=== PATIENT | male | born 1985 | race Caucasian/White ===

== ENCOUNTER 2017-01-24 03:08 | Emergency (ER) | payer MEDICAID ==
[~2017-01-24] VITALS: Ht 180.3 cm; Wt 78.5 kg
[2017-01-24 04:41] VITALS: BP 115/72
== END 2017-01-24 04:42 | disposition home or self-care (01) ==
LOC: ED 03:46
DX: M25.571 Pain in right ankle and joints of right foot (principal); M25.572 Pain in left ankle and joints of left foot; B20 Human immunodeficiency virus [HIV] disease; W01.0XXA Fall on same level from slipping, tripping and stumbling without subsequent striking against object, initial encounter; Y93.89 Activity, other specified; Y99.8 Other external cause status; Y92.89 Other specified places as the place of occurrence of the external cause
CPT/HCPCS: 99284

== ENCOUNTER 2017-01-26 12:24 | Emergency (ER) | payer MEDICAID ==
[~2017-01-26] VITALS: Ht 180.3 cm; Wt 76.1 kg
[2017-01-26] MEDS ORDERED: LORazepam 2 MG/ML, 1ML IVPush ONE (13:00)
[2017-01-26] MEDS ORDERED: ONDANSETRON 2MG/ML, 2ML IVPush ONE (13:00)
[2017-01-26] MEDS ORDERED: SODIUM CHLORIDE FLUSH 10ML SYR IVF ONE (13:00)
[2017-01-26] MEDS ORDERED: SODIUM CHLORIDE 0.9% 1,000ML IVBOLUS ONE (13:00)
[2017-01-26 13:37] LABS: ASPARTATE AMINO TRANSFERASE 34 U/L (15-37); BLOOD UREA NITROGEN 10 mg/dL (7-18)
[2017-01-26] MEDS ORDERED: ONDANSETRON 2MG/ML, 2ML ONE (14:21)
[2017-01-26 15:36] VITALS: BP 113/62
== END 2017-01-26 15:38 | disposition home or self-care (01) ==
LOC: ED 15:00
DX: A08.0 Rotaviral enteritis (principal); Z88.6 Allergy status to analgesic agent; Z88.8 Allergy status to other drugs, medicaments and biological substances
CPT/HCPCS: 36415; 71010; 80053; 83605; 85025; 87040; 93005; 96361; 96374; 99285; J2405; J7030

== ENCOUNTER 2017-09-17 21:00 | Emergency (ER) | payer MEDICAID ==
[~2017-09-17] VITALS: Ht 180.3 cm; Wt 77.4 kg
[2017-09-17 21:56] LABS: BASOPHILS # (AUTO) 0.03 x10^3/uL (0-0.1); BASOPHILS % (AUTO) 1 % (0-1); EOSINOPHILS % (AUTO) 0 % (1-7); LYMPHOCYTES # (AUTO) 1.54 x10^3/uL (1-3.4); LYMPHOCYTES % (AUTO) 26 % (22-44); MD NO; MEAN CORPUSCULAR HEMOGLOBIN 31.4 pg (27.5-34.5); MEAN CORPUSCULAR HGB CONC 34.3 g/dL (33.2-36.2); MEAN CORPUSCULAR VOLUME 91.7 fL (81-97); MEAN PLATELET VOLUME 6.7 fL (7.4-10.4); MONOCYTES # (AUTO) 0.57 x10^3/uL (0.2-0.8); MONOCYTES % (AUTO) 10 % (2-9); NEUTROPHILS # (AUTO) 3.77 x10^3/uL (1.8-6.8); NEUTROPHILS % (AUTO) 64 % (42-75); PLATELET COUNT 300 x10^3/uL (130-400); RED BLOOD COUNT 4.53 x10^6/uL (4.38-5.82); RED CELL DISTRIBUTION WIDTH 13.5 % (9.4-14.8)
[2017-09-17 22:00] LABS: RAPID INFLUENZA A Negative (Negative)
[2017-09-17] MEDS ORDERED: SODIUM CHLORIDE 0.9% 1,000ML IVBOLUS ONE (22:00)
[2017-09-17] MEDS ORDERED: KETOROLAC 30 MG/1 ML IVPush ONE (22:00)
[2017-09-17 22:01] LABS: RAPID INFLUENZA B POSITIVE (Negative)
[2017-09-17 22:03] LABS: ALBUMIN 3.3 g/dL (3.4-5.0); ANION GAP 5 mmol/L (5-15); CHLORIDE 102 mmol/L (98-107); CREATININE 1.15 mg/dL (0.7-1.3)
[2017-09-17] MEDS ORDERED: KETOROLAC 30 MG/1 ML ONE (22:33)
[2017-09-17 22:53] VITALS: BP 120/72
== END 2017-09-17 23:04 | disposition home or self-care (01) ==
LOC: ED 22:57
DX: J09.X2 Influenza due to identified novel influenza A virus with other respiratory manifestations (principal); J45.909 Unspecified asthma, uncomplicated
CPT/HCPCS: 36415; 71010; 80048; 82040; 85025; 87400; 93005; 96374; 99285; J1885; J7030

== ENCOUNTER 2017-09-23 06:23 | Emergency (ER) | payer MEDICAID ==
[~2017-09-23] VITALS: Ht 180.3 cm; Wt 76.0 kg
[2017-09-23 06:27] VITALS: BP 133/91
[2017-09-23] MEDS ORDERED: ABAC1TAB14 PO (06:38)
== END 2017-09-23 07:19 | disposition home or self-care (01) ==
LOC: ED 07:13
DX: J20.8 Acute bronchitis due to other specified organisms (principal); B96.89 Other specified bacterial agents as the cause of diseases classified elsewhere; F17.200 Nicotine dependence, unspecified, uncomplicated; J45.909 Unspecified asthma, uncomplicated
CPT/HCPCS: 99283

== ENCOUNTER 2018-02-18 09:50 | Emergency (ER) | payer MEDICAID ==
[~2018-02-18] VITALS: Ht 180.3 cm; Wt 77.7 kg
[~2018-02-18 09:50] MED LIST: ABAC1TAB14 PO
[2018-02-18 09:52] VITALS: BP 133/91
[2018-02-18] MEDS ORDERED: HYDROcodone/APAP 5/325 TABLET PO ONE (10:30)
[2018-02-18] MEDS ORDERED: HYDROcodone/APAP 5/325 TABLET ONE (10:33)
== END 2018-02-18 10:42 | disposition home or self-care (01) ==
LOC: ED 10:36
DX: K02.9 Dental caries, unspecified (principal); F15.10 Other stimulant abuse, uncomplicated; F17.210 Nicotine dependence, cigarettes, uncomplicated
CPT/HCPCS: 99283

== ENCOUNTER 2018-12-09 13:47 | Emergency (ER) | payer MEDICAID ==
[~2018-12-09] VITALS: Ht 180.3 cm; Wt 78.9 kg
[2018-12-09 14:34] VITALS: BP 113/73
[2018-12-09] MEDS ORDERED: DEXAMETHASONE 4 MG/ML, 5ML ONE (14:49)
[2018-12-09] MEDS ORDERED: DEXAMETHASONE 4 MG/ML, 1ML PO ONE (15:00)
--- NOTE | 2018-12-09 15:33 | NUR ---
Patient/Caregiver given discharge instructions and they have confirmed that they understand the instructions. Patient ambulatory with steady gait.
== END 2018-12-09 15:34 | disposition home or self-care (01) ==
LOC: ED 15:15
DX: B34.9 Viral infection, unspecified (principal); R05 Cough; F17.200 Nicotine dependence, unspecified, uncomplicated
CPT/HCPCS: 71046; 99283; J1100

== ENCOUNTER 2019-10-02 13:51 | Emergency (ER) | payer MEDICAID ==
[~2019-10-02] VITALS: Ht 180.3 cm; Wt 80.0 kg
[2019-10-02 14:29] VITALS: BP 122/103
[2019-10-02] MEDS ORDERED: SODIUM CHLORIDE FLUSH 10ML SYR IVF ONE (15:00)
[2019-10-02 15:02] LABS: BASOPHILS # (AUTO) 0.03 x10^3/uL (0-0.1); BASOPHILS % (AUTO) 0 % (0-1); EOSINOPHILS # (AUTO) 0.03 x10^3/uL (0-0.4); EOSINOPHILS % (AUTO) 1 % (1-7); LYMPHOCYTES # (AUTO) 0.71 x10^3/uL (1-3.4); LYMPHOCYTES % (AUTO) 12 % (22-44); MD NO; MEAN CORPUSCULAR HEMOGLOBIN 32.6 pg (27.5-34.5); MEAN CORPUSCULAR HGB CONC 34.4 g/dL (33.2-36.2); MEAN CORPUSCULAR VOLUME 94.8 fL (81-97); MEAN PLATELET VOLUME 7.2 fL (7.4-10.4); MONOCYTES # (AUTO) 0.39 x10^3/uL (0.2-0.8); MONOCYTES % (AUTO) 7 % (2-9); NEUTROPHILS # (AUTO) 4.56 x10^3/uL (1.8-6.8); NEUTROPHILS % (AUTO) 80 % (42-75); PLATELET COUNT 290 x10^3/uL (130-400); RED BLOOD COUNT 4.19 x10^6/uL (4.38-5.82); RED CELL DISTRIBUTION WIDTH 13.6 % (9.4-14.8)
--- NOTE | 2019-10-02 15:03 | NUR ---
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
--- NOTE | 2019-10-02 15:05 | NUR ---
PT TO RROM FROM [facility], CHANGED INTO GOWN, UPRIGHT ON GURNEY AWAKE & COMFORTABLE, RESPONDS APPROP TO STAFF, ND, COMFORT MEASURES PROVIDED, FRIEND AT BS, CALL LIGHT WITHIN RECH.
--- NOTE | 2019-10-02 15:08 | NUR ---
DR SOFIA AT BS
[2019-10-02 15:14] LABS: ALANINE AMINOTRANSFERASE 25 U/L (12-78); ALBUMIN 3.7 g/dL (3.4-5.0); ANION GAP 5 mmol/L (5-15); CALCIUM 8.5 mg/dL (8.5-10.1); CHLORIDE 106 mmol/L (98-107); CREATININE 1.17 mg/dL (0.7-1.3)
[2019-10-02 15:16] LABS: ALKALINE PHOSPHATASE 71 U/L (45-117); BILIRUBIN,TOTAL 0.7 mg/dL (0.2-1.0); TOTAL PROTEIN 7.3 g/dL (6.4-8.2)
[2019-10-02 15:19] LABS: RAPID INFLUENZA A POSITIVE (Negative); RAPID INFLUENZA B Negative (Negative)
[2019-10-02] MEDS ORDERED: IBUPROFEN 200 MG TABLET ONE (15:28)
[2019-10-02] MEDS ORDERED: IBUPROFEN 200 MG TABLET PO ONE (15:30)
--- NOTE | 2019-10-02 15:30 | NUR ---
PO FLUIDS GIVEN
--- NOTE | 2019-10-02 15:59 | NUR ---
PT REMAINS UPRIGHT ON GURNEY AWAKE & COMFORTABLE, RESPONDS APPROP TO STAFF, NAD, COMFORT MEASURES PROVIDED, FRIEND AT BS, CALL LIGHT WITHIN RECH.
[2019-10-02 16:23] LABS: CULTURE INDICATED? YES; MICROSCOPIC INDICATED
--- NOTE | 2019-10-02 17:07 | NUR ---
Patient given discharge instructions and Rx, they have confirmed that they understand the instructions. Patient ambulatory with steady gait.
== END 2019-10-02 17:09 | disposition home or self-care (01) ==
LOC: ED 16:36
DX: L03.031 Cellulitis of right toe (principal); J10.1 Influenza due to other identified influenza virus with other respiratory manifestations
CPT/HCPCS: 36415; 71046; 80053; 81001; 85025; 87086; 87400; 93005; 99284

== ENCOUNTER 2020-02-13 08:13 | Emergency (ER) | payer MEDICAID ==
[~2020-02-13] VITALS: Ht 180.3 cm; Wt 79.1 kg
[2020-02-13] MEDS ORDERED: DIPH,PERTUSS(ACELL),TET VAC/PF NC IM-VACC ONE (09:00)
[2020-02-13] MEDS ORDERED: DIPH,PERTUSS(ACELL),TET VAC/PF 0.5 ML IM-VACC ONE (09:06)
--- NOTE | 2020-02-13 09:20 | NUR ---
CLEANSED R FA WITH ANTIMICROBIAL SOAP AND WARM WATER. EDUCATED PT ON HOW TO CLEANSE WOUND AT HOME. PT VERBALIZED UNDERSTANDING.
[2020-02-13 09:44] VITALS: BP 121/79
== END 2020-02-13 10:32 | disposition home or self-care (01) ==
LOC: ED 09:15
DX: M79.631 Pain in right forearm (principal); J45.909 Unspecified asthma, uncomplicated; F17.290 Nicotine dependence, other tobacco product, uncomplicated; Y04.0XXA Assault by unarmed brawl or fight, initial encounter; Y93.89 Activity, other specified; Y92.488 Other paved roadways as the place of occurrence of the external cause; Y99.8 Other external cause status
CPT/HCPCS: 90471; 90715; 99283

== ENCOUNTER 2020-04-18 12:12 | Emergency (ER) | payer MEDICAID ==
[~2020-04-18] VITALS: Ht 180.3 cm; Wt 79.3 kg
[2020-04-18] MEDS ORDERED: KETOROLAC 30 MG/1 ML IM ONE (13:00)
[2020-04-18] MEDS ORDERED: KETOROLAC 60 MG/2 ML ONE (13:12)
[2020-04-18 13:33] LABS: BASOPHILS # (AUTO) 0.02 x10^3/uL (0-0.1); BASOPHILS % (AUTO) 0 % (0-1); EOSINOPHILS # (AUTO) 0.05 x10^3/uL (0-0.4); EOSINOPHILS % (AUTO) 1 % (1-7); LYMPHOCYTES # (AUTO) 1.36 x10^3/uL (1-3.4); LYMPHOCYTES % (AUTO) 16 % (22-44); MD NO; MEAN CORPUSCULAR HEMOGLOBIN 31.7 pg (27.5-34.5); MEAN CORPUSCULAR HGB CONC 33.9 g/dL (33.2-36.2); MEAN CORPUSCULAR VOLUME 93.7 fL (81-97); MEAN PLATELET VOLUME 6.6 fL (7.4-10.4); MONOCYTES # (AUTO) 0.42 x10^3/uL (0.2-0.8); MONOCYTES % (AUTO) 5 % (2-9); NEUTROPHILS # (AUTO) 6.46 x10^3/uL (1.8-6.8); NEUTROPHILS % (AUTO) 78 % (42-75); PLATELET COUNT 371 x10^3/uL (130-400); RED BLOOD COUNT 5.28 x10^6/uL (4.38-5.82); RED CELL DISTRIBUTION WIDTH 12.7 % (9.4-14.8)
--- NOTE | 2020-04-18 13:40 | NUR ---
PT MEDICATED ORDERED. UA COLLECTED AND SENT TO THE LAB. PT C/O MID BACK PAIN AFTER STRAINING BACK A FEW DAYS AGO AND ALSO INCREASING BODY ACHES, FEVERS, CHILLS, AND SOB. FRIEND OF A FRIEND HAD COVID.
[2020-04-18 13:42] LABS: ALANINE AMINOTRANSFERASE 47 U/L (12-78); ALBUMIN 3.4 g/dL (3.4-5.0); ANION GAP 8 mmol/L (5-15); CALCIUM 8.5 mg/dL (8.5-10.1); CHLORIDE 106 mmol/L (98-107); CREATININE 1.16 mg/dL (0.7-1.3)
[2020-04-18 13:44] LABS: ALKALINE PHOSPHATASE 101 U/L (45-117); BILIRUBIN,TOTAL 0.7 mg/dL (0.2-1.0); TOTAL PROTEIN 7.4 g/dL (6.4-8.2)
[2020-04-18 13:46] LABS: MICROSCOPIC NOT IND
--- NOTE | 2020-04-18 14:12 | NUR ---
CHART UP FOR MD RECHECK. PT AWARE.
[2020-04-18] MEDS ORDERED: SODIUM CHLORIDE FLUSH 10ML SYR IVF ONE (15:00)
[2020-04-18 15:31] VITALS: BP 96/66
== END 2020-04-18 15:33 | disposition home or self-care (01) ==
LOC: ED 13:17
DX: B34.9 Viral infection, unspecified (principal); Z20.828 Contact with and (suspected) exposure to other viral communicable diseases; R06.02 Shortness of breath; M54.5 Low back pain; M54.6 Pain in thoracic spine; R00.0 Tachycardia, unspecified; J45.909 Unspecified asthma, uncomplicated
CPT/HCPCS: 36415; 71045; 72080; 80053; 81003; 85025; 87635; 93005; 96372; 99285; J1885

== ENCOUNTER 2020-04-19 17:41 | Emergency (ER) | payer MEDICAID ==
[~2020-04-19] VITALS: Ht 180.3 cm; Wt 81.5 kg
--- NOTE | 2020-04-19 18:23 | NUR ---
PT WC'D TO ROOM 36 W/ C/O INCREASING SOB AND BACK SPASMS. PT STATES HE ALSO HAS WOUND OUTSIDE OF ANUS. PT STATES HE HAD CONTACT W/ FRIEND WHO WAS EXPOSED TO COVID. PT WAS SEEN HERE YESTERDAY FOR SAME. COVID PENDING. MONITORS APPLIED. PT POSITIONED ON GURNEY FOR COMFORT. MONITORS APPLIED. WARM BLANKET PROVIDED.
[2020-04-19 18:24] VITALS: BP 129/75
--- NOTE | 2020-04-19 18:39 | NUR ---
WENT INTO ROOM TO LET PT KNOW ABOUT PLAN FOR DC. PT NOT IN ROOM. GOWN ON GURNEY. PT ARMBAND ON GURNEY. NO PERSONAL BELONGINGS IN ROOM.
== END 2020-04-19 18:40 | disposition left against medical advice (07) ==
LOC: ED 17:55
DX: K62.5 Hemorrhage of anus and rectum (principal); R10.2 Pelvic and perineal pain; R06.02 Shortness of breath; J45.909 Unspecified asthma, uncomplicated; Z90.89 Acquired absence of other organs
CPT/HCPCS: 99283